=== PATIENT | male | born 1995 | race Caucasian/White ===

== ENCOUNTER → 2021-11-23 | Outpatient (CLI) | payer OTHER | LOC: M SOG 13:48 | PROVIDERS: ATTEND Orthopaedic Surgery Sports Medicine | DX: M23.304 Other meniscus derangements, unspecified medial meniscus, left knee (principal) ==

== ENCOUNTER → 2021-11-24 | Outpatient (CLI) | payer OTHER | LOC: M PLAIMG 13:04 | PROVIDERS: ATTEND Orthopaedic Surgery Sports Medicine | DX: R93.7 Abnormal findings on diagnostic imaging of other parts of musculoskeletal system (principal); M25.562 Pain in left knee; M23.304 Other meniscus derangements, unspecified medial meniscus, left knee ==

== ENCOUNTER → 2021-12-29 | Outpatient (REF) | payer OTHER ==
[2021-12-29 13:43] LABS: APPEARANCE, URINE HAZY (CLEAR); BACTERIA, URINE AUTO NEGATIVE (NEGATIVE); BILIRUBIN, URINE AUTO NEGATIVE (NEGATIVE); BLOOD, URINE BLOOD NEGATIVE (NEGATIVE); COLOR, URINE YELLOW (YELLOW); GLUCOSE, URINE (UA) AUTO NEGATIVE (NEGATIVE); KETONE, URINE AUTO NEGATIVE (NEGATIVE); LEUKOCYTE ESTERASE, URINE AUTO 2+ (NEGATIVE); NITRITE, URINE AUTO NEGATIVE (NEGATIVE); PROTEIN, URINE AUTO NEGATIVE (NEGATIVE); RBC, URINE AUTO 0 /HPF (0-3); SPECIFIC GRAVITY URINE AUTO 1.009 (1.002-1.035); SQUAMOUS EPITHELIAL CELL UR AU 0 /HPF (0-6); UROBILINOGEN, URINE AUTO 0.2 mg/dL (0.0-2.0); WBC, URINE AUTO 26 /HPF (0-3)
[2021-12-29 14:55] LABS: GC DNA AMPLIFICATION NEGATIVE (NEGATIVE)
== END ==
LOC: M LAB REF 12:55
PROVIDERS: ATTEND Physician Assistant
DX: Z20.2 Contact with and (suspected) exposure to infections with a predominantly sexual mode of transmission (principal); R30.0 Dysuria